=== PATIENT | female | born 1945 | race American Indian/Alaskan Native ===

== ENCOUNTER 2019-09-30 05:01 | Emergency (ER) | payer MEDICARE ==
[2019-09-30 06:02] LABS: Calcium 9.6 mg/dL (8.4-10.2)
--- NOTE | 2019-09-30 07:16 | Emergency Department Report ---
ED General Adult HPI - General Chief complaint: GI Bleed Stated complaint: RECTAL BLEEDING Time Seen by Provider: 09/30/19 06:10 Source: patient Mode of arrival: Ambulatory Limitations: No Limitations - History of Present Illness Initial comments: 4-year-old female states she saw blood on the toilet paper 1 yesterday. She told triage that her stomach was gurgling. She had no nausea no vomiting no weakness no shortness of breath. She tells me that she had a normal colonoscopy 2-3 months ago. She is no distress and has no active bleeding. He does admit straining at stool. -: Gradual Associated Symptoms: denies other symptoms - Related Data Allergies Allergy/AdvReac Type Severity Reaction Status Date / Time No Known Allergies Allergy Unverified 04/14/14 11:30 ED Review of Systems ROS: Stated complaint: RECTAL BLEEDING Other details as noted in HPI Constitutional: denies: chills, fever Eyes: denies: eye pain, eye discharge, vision change ENT: denies: ear pain, throat pain Respiratory: denies: cough, shortness of breath, wheezing Cardiovascular: denies: chest pain, palpitations Endocrine: no symptoms reported Gastrointestinal: denies: abdominal pain, nausea, diarrhea Genitourinary: denies: urgency, dysuria, discharge Musculoskeletal: denies: back pain, joint swelling, arthralgia Skin: denies: rash, lesions Neurological: denies: headache, weakness, paresthesias Psychiatric: denies: anxiety, depression Hematological/Lymphatic: denies: easy bleeding, easy bruising ED Past Medical Hx - Past Medical History Previous Medical History?: Yes - Surgical History Past Surgical History?: No - Social History Smoking Status: Never Smoker Substance Use Type: None ED Physical Exam - General Limitations: No Limitations General appearance: alert, in no apparent distress - Head Head exam: Present: atraumatic, normocephalic - Eye Eye exam: Present: normal appearance. Absent: scleral icterus - ENT ENT exam: Present: mucous membranes moist - Neck Neck exam: Present: normal inspection - Respiratory Respiratory exam: Present: normal lung sounds bilaterally. Absent: respiratory distress - Cardiovascular Cardiovascular Exam: Present: regular rate, normal rhythm. Absent: systolic m urmur, diastolic murmur, rubs, gallop - GI/Abdominal GI/Abdominal exam: Present: soft, normal bowel sounds. Absent: distended, tenderness, guarding, rebound, rigid - Rectal Rectal exam: Present: normal inspection - Extremities Exam Extremities exam: Present: normal inspection, normal capillary refill. Absent: calf tenderness - Back Exam Back exam: Present: normal inspection - Neurological Exam Neurological exam: Present: alert, oriented X3, CN II-XII intact. Absent: motor sensory deficit - Psychiatric Psychiatric exam: Present: normal affect, normal mood - Skin Skin exam: Present: warm, dry, intact, normal color. Absent: rash ED Course Vital Signs 09/30/19 09/30/19 05:04 08:28 Temperature 97.9 F 98.3 F Pulse Rate 83 74 Respiratory 20 20 Rate Blood Pressure 155/66 Blood Pressure 142/62 [Right] O2 Sat by Pulse 97 100 Oximetry - Reevaluation(s) Reevaluation #1: Wrist tells me she had to "help the patient pushed out her stool" and that she was constipated. No significant blood was seen. 09/30/19 08:28 09/30/19 08:39 ED Medical Decision Making - Lab Data Result diagrams: 09/30/19 07:36 09/30/19 05:15 Laboratory Results - last 24 hr 09/30/19 05:15 Sodium 138 Potassium 3.8 Chloride 104.4 Carbon Dioxide 19 L Anion Gap 18 BUN 20 H Creatinine 1.2 Estimated GFR 53 BUN/Creatinine Ratio 17 Glucose 127 H Calcium 9.6 Laboratory Results - last 24 hr 09/30/19 09/30/19 09/30/19 05:15 06:44 06:44 PT 12.3 INR 0.92 APTT 25.3 Sodium 138 Potassium 3.8 Chloride 104.4 Carbon Dioxide 19 L Anion Gap 18 BUN 20 H Creatinine 1.2 Estimated GFR 53 BUN/Creatinine Ratio 17 Glucose 127 H Calcium 9.6 Magnesium 2.10 Total Bilirubin 0.40 Direct Bilirubin < 0.2 Indirect Bilirubin 0.2 AST 25 ALT 15 Alkaline Phosphatase 48 NT-Pro-B Natriuret Pep 158.4 Total Protein 7.8 Albumin 4.7 Albumin/Globulin Ratio 1.5 Critical care attestation.: If time is entered above; I have spent that time in minutes in the direct care of this critically ill patient, excluding procedure time. ED Disposition Clinical Impression: Rectal bleeding Disposition: DC-01 TO HOME OR SELFCARE Is pt being admited?: No Does the pt Need Aspirin: No Condition: Stable Instructions: Rectal Bleeding (ED) Additional Instructions: Return as needed any signs of significant bleeding. Otherwise follow-up with your GI specialist. Referrals: PRIMARY CARE,MD [Primary Care Provider] - 3-5 Days Forms: Accompanied Note Time of Disposition: 08:40
[2019-09-30 07:18] LABS: Alanine Aminotransferase 15 units/L (7-56); Albumin 4.7 g/dL (3.9-5)
[2019-09-30 07:23] LABS: INR 0.92 (0.87-1.13); Partial Thromboplastin Time 25.3 Sec. (24.2-36.6)
[2019-09-30 07:33] LABS: Bilirubin,Direct < 0.2 mg/dL (0-0.2)
[2019-09-30 07:47] LABS: Basophils % (Auto) 1.2 % (0.0-1.8); Eosinophils % (Auto) 0.9 % (0.0-4.3); Hematocrit 38.2 % (30.3-42.9); Hemoglobin 12.9 gm/dl (10.1-14.3); Lymphocytes # (Auto) 1.5 K/mm3 (1.2-5.4); Lymphocytes % (Auto) 39.3 % (13.4-35.0); Mean Corpuscular HGB Conc 34 % (30-34); Mean Corpuscular Volume 91 fl (79-97); Monocytes # (Auto) 0.3 K/mm3 (0.0-0.8); Monocytes % (Auto) 6.9 % (0.0-7.3); Platelet Count 136 K/mm3 (140-440); Red Blood Count 4.19 M/mm3 (3.65-5.03); Red Cell Distribution Width 13.4 % (13.2-15.2)
[2019-09-30 08:34] VITALS: BP 142/62
== END 2019-09-30 09:42 | disposition home or self-care (01) ==
LOC: ED 05:01
DX: K62.5 Hemorrhage of anus and rectum (principal)
CPT/HCPCS: 36415; 80048; 80076; 83735; 83880; 85025; 85610; 85730